=== PATIENT | female | born 1970 | race Caucasian/White ===

== ENCOUNTER 2023-07-05 15:51 | Emergency (ER) | payer OTHER, SELFPAY ==
[2023-07-05 15:57] VITALS: BP 149/103
[2023-07-05 16:23] LABS: % Basophils 0.6 % (0-2); % Eosinophils 1.8 % (0-6); % Immature Granulocytes 0.2 % (0-0.5); % Lymphocytes 32.4 % (20.5-51.1); Absolute Eosinophils 0.1 10^3/uL (0-0.7); Absolute Lymphocytes 1.7 10^3/uL (1.2-3.4); Absolute Monocytes 0.4 10^3/uL (0.1-0.6); Absolute Neutrophils 2.9 10^3/uL (1.4-6.5); Hematocrit 40.7 % (37.0-47.0); Hemoglobin 14.2 g/dL (12.0-16.0); Mean Corp Hgb Conc. 34.9 g/dL (33.0-37.0); Mean Corpuscular Hgb 32.3 pg (27.0-31.0); Mean Corpuscular Volume 92.5 fL (81.0-99.0); Mean Platelet Volume 10.6 fL (7.4-10.4); Nucleated Red Blood Cells % 0 %; Platelet Count 170 10^3/uL (130-400); Red Cell Dist. Width 11.9 % (11.5-14.5); White Blood Cell Count 5.1 10^3/uL (4.8-10.8)
[2023-07-05 16:33] LABS: ALT (SGPT) 20 U/L (0-35); AST (SGOT) 26 U/L (14-36); Albumin 4.1 g/dl (3.5-5.0); Alkaline Phosphatase 87 U/L (38-126); Blood Urea Nitrogen 19 mg/dl (7-17); Calcium 9.6 mg/dl (8.4-10.2); Carbon Dioxide 29 mmol/L (22-30); Chloride 98 mmol/L (98-107); Glucose 119 mg/dl (70-99); Potassium 4.5 mmol/L (3.5-5.1); Sodium 138 mmol/L (135-145); Total Bilirubin 0.7 mg/dl (0.2-1.3); Total Protein 6.8 g/dl (6.3-8.2); eGFR > 60.00
[2023-07-05 16:34] LABS: Lipase 177 U/L (23-300)
--- NOTE | 2023-07-05 18:11 | ED.GENMED ---
History of Present Illness
General
Chief Complaint: Abdominal Symptoms
Source: patient and family
Time Seen by Provider: 07/05/23 17:33
Travel History
Have you had any contact with someone who has COVID-19?: No
Do you have any symptoms of coronavirus? Fever > 100 degrees, chills, cough, shortness of breath, sore throat, loss of taste or smell, muscle aches, or headache?: No
History of Present Illness
History of Present Illness:
53-year-old female with past medical history of metastatic breast cancer status post double mastectomy, status post cholecystectomy and liver lobe resection presenting to the emergency department for evaluation after she started experiencing
increased abdominal bloating, belching, early satiety over the last 5 to 6 days, the last 3 days has experienced some diffuse intermittent back pain sent to the emergency department by her GI physician for further evaluation. Patient states that
she has been taking her Pepcid as directed but with minimal relief. She notes that she had an upper endoscopy a few months ago and was told that there were no abnormalities. She denies any bowel changes, urinary symptoms, no nausea or vomiting,
chest pain, shortness of breath, recent illnesses or any other concerns. Patient does note she did have some alcoholic beverages this past Wednesday but had already been experiencing symptoms prior to this. No other concerns at this time.
Past History
Past History
ED Past Medical History: Asthma, Cancer and Other (breast CA, no current chemo)
ED Past Surgical History: Cholecystectomy, , Orthopedic and Other (Double mastectomy, lower lobe resection)
Social History
Tobacco: Former smoker
Alcohol: Occasional
Drug: None
Personal:
Living: with family
Review of Systems
Review of Systems
All Other Systems: ROS reviewed and negative except as documented in HPI and ROS
Phy Exam
Physical Exam
Physical Exam:
GENERAL: Alert , in no apparent distress
EYE: clear conjunctiva b/l
HEAD: NCAT
ENT: o/p clr, mmm.
CARDIAC: Regular rate and rhythm .
LUNGS: Clear breath sounds bilaterally, no acute respiratory distress, no wheezes/rales/rhonchi
ABDOMEN: Soft, But distended, generalized discomfort without any focal tenderness, no r/g, no cvat, no tenderness at McBurney's point
NEUROLOGICAL: Alert and oriented
SKIN: Warm and dry, skin intact.
MUSCULOSKELETAL: well perfused.
PSYCH: Normal and appropriate interaction.
Scores
Heart Failure Risk
Heart Failure Risk Score: Not Applicable
Heart Score for Chest Pain Patients
STEMI patient?: Not applicable
Withdrawal Assessment of Alcohol
Withdrawal Assessment Completed?: Not applicable
Course
Orders/Labs/Results
Orders:
Orders
07/05/23 16:12
Complete Blood Count/With Diff Urgent
Comprehensive Metabolic Panel Urgent
Lipase Urgent
07/05/23 17:57
Famotidine [Pepcid] 20 mg IV NOW STA
Mag Hydrox/Al Hydrox/Simeth [Maalox] 30 ml Phenobarb/Hyoscy/Atropine/Scop [] 10 ml Viscous Lidocaine 2% [Xylocaine Viscous Cup] 10 ml PO NOW
07/05/23 17:58
CT Abd/pelvis W Iv Cont Urgent
Comment:
Reason For Exam: diffuse abd pain, previous liver mets, s/p arabella
07/05/23 18:13
Phenobarb/Hyoscy/Atropine/Scop [] 10 ml .ROUTE .STK-MED ONE
07/05/23 18:14
Mag Hydrox/Al Hydrox/Simeth [Maalox] 30 ml .ROUTE .STK-MED ONE
Viscous Lidocaine 2% [Xylocaine Viscous Cup] 15 ml .ROUTE .STK-MED ONE
07/05/23 18:29
Urinalysis Reflex To Culture Urgent
Date Specimen was Collected: 07/05/23
Time Specimen was Collected: 18:03
Urine Microscopic Reflex Cult Urgent
Abnormal Lab Results
07/05/23 07/05/23
16:12 18:29
MCH 32.3 H pg
(27.0-31.0)
MPV 10.6 H fL
(7.4-10.4)
BUN 19 H mg/dl
(7-17)
Glucose 119 H mg/dl
(70-99)
Leukocyte Esterase Rfl Trace A
(Negative)
07/05/23 16:12
07/05/23 16:12
Vital Signs
Initial and Last Documented VS:
Initial Vital Signs
Temp Pulse Resp BP Pulse Ox
98.2 F 86 16 149/103 98
07/05/23 15:57 07/05/23 15:57 07/05/23 15:57 07/05/23 15:57 07/05/23 15:57
Last Documented Vital Signs
Temp Pulse Resp BP Pulse Ox
98.2 F 81 16 149/103 98
07/05/23 15:57 07/05/23 19:40 07/05/23 15:57 07/05/23 15:57 07/05/23 19:40
MDM/Problems Addressed
Differential Diagnosis Includes:
GERD, gastritis, peptic ulcer disease, H. pylori, pancreatitis, appendicitis, less concern for atypical ACS presentation, given history of metastatic cancer minor concern for malignancy
MDM/Problems Addressed:
53-year-old female in the emergency department for evaluation of generalized abdominal discomfort, increased belching and over the last few days now back pain. Patient contacted her GI physician who directed her to the ER for further evaluation.
Lab work was initiated in triage and other than a low bicarb is unremarkable. Given patient's history I would like to obtain a CT of the abdomen pelvis for further evaluation. Will treat with Pepcid and green grabber. Reassessment following.
Chronic conditions affecting care: Cancer
*Radiology
Radiology exam reviewed: radiology read reviewed
*Pulse Oximetry
Patient hypoxic: no
*Critical Care Note
Total Time (30-74mins, 75-104mins- exclusive of procedures): Not Applicable
Data Reviewed
Review of Other/Old Records Reveals: Labs and Radiology Studies
Source: patient
Patient Management
Escalation/DeEscalation of care consider admission/obs:
Patient CT without any acute findings. She feels better with medications. She is afebrile, no leukocytosis and otherwise reassuring labs. Advise close follow-up with primary care physician as well as her GI. Aware of return precautions emergency
department but otherwise stable for discharge home.
ED Attending Note
-
Portions of this chart may have been created with voice recognition software.� Occasional wrong word or��sound alike� substitutions may have occurred due to the inherent limitations of voice recognition software.
Discharge Plan
Departure
Patient Disposition: Home (Routine Discharge)
Date of Disposition: 07/05/23
Time of Disposition: 19:30
Patient with high blood pressure during this ER visit?: No
Discharge Problem:
Abdominal pain
Instructions: Abdominal Pain
Prescriptions:
No Action
tamoxifen 20 MG tablet
20 mg PO DAILY
ondansetron [Zofran ODT] 8 MG tablet,disintegrating
8 mg PO TID PRN (Reason: nausea/vomiting) Qty: 15 0RF
oxycodone 5 MG tablet
5 mg PO Q6H PRN (Reason: pain) Qty: 30 0RF
Referrals:
Kayy Robbins PA-C [Family Provider] -
Interventions
Interventions:
*Risk Screen - Suicide Last Done: 07/05/23 19:40
*General Assessment Last Done: 07/05/23 19:40
*Neglect/Abuse Screening Last Done: 07/05/23 19:40
*ED COVID-19 Vaccine History Last Done: 07/05/23 15:57
*Nursing Disposition Last Done: 07/05/23 19:40
XG-Ffvioh-Owikznllaj Assessment Last Done: 07/05/23 18:58
Discharge Date and Time
Discharge Date/Time: 07/05/23 19:41
[2023-07-05] MEDS: MAALOX 50 PO (18:21)
[2023-07-05] MEDS: PEPCID 20 MG IV (18:22)
[2023-07-05 18:49] LABS: Urine Albumin Negative (Neg - Trace); Urine Bilirubin Negative (Negative); Urine Character Clear (Clear); Urine Color Yellow; Urine Glucose Negative (Negative); Urine Ketone Negative (Negative); Urine Leukocyte Trace (Negative); Urine Nitrite Negative (Negative); Urine Occult Blood Negative (Negative); Urine Urobilinogen Negative (Neg - 1+)
[2023-07-05 18:55] LABS: Urine Red Blood Cell None Seen /HPF (0-2); Urine Squamous Cell 0-2 /LPF (Few)
== END 2023-07-05 19:41 | disposition home or self-care (01) ==
LOC: EMR 15:51
PROVIDERS: Physician Assistant Medical; EMERGENCY PHYSICIAN Emergency Medicine; FAMILY PHYSICIAN Physician Assistant Medical
DX: R10.9 Unspecified abdominal pain (principal); R14.0 Abdominal distension (gaseous); R68.81 Early satiety; C78.7 Secondary malignant neoplasm of liver and intrahepatic bile duct; Z90.49 Acquired absence of other specified parts of digestive tract; Z85.3 Personal history of malignant neoplasm of breast; Z87.891 Personal history of nicotine dependence; Z90.13 Acquired absence of bilateral breasts and nipples
CPT/HCPCS: 99284; 96374; 74177; 80053; 81003; 81015; 83690; 85025; Q9967

== ENCOUNTER → 2024-02-02 10:44 | Outpatient (REF) | payer OTHER, SELFPAY ==
[2024-02-03 20:02] LABS: Rubella Positive
[2024-02-04 13:14] LABS: Quantiferon Plus TB1 minus NIL 0.04 IU/mL (<=0.34); Quantiferon Plus TB2 minus NIL 0.02 IU/mL (<=0.34); Quantiferon TB Gold Plus Negative (Negative)
== END ==
LOC: REG 10:44
PROVIDERS: ATTENDING PHYSICIAN Nurse Practitioner Family; FAMILY PHYSICIAN Physician Assistant Medical
DX: Z23 Encounter for immunization (principal)
CPT/HCPCS: 36415; 86480; 86735; 86762; 86765; 86787

== ENCOUNTER → 2024-04-24 15:26 | Outpatient (REF) | payer OTHER, SELFPAY | LOC: RCS 15:26 | PROVIDERS: ATTENDING PHYSICIAN Internal Medicine Hematology & Oncology; FAMILY PHYSICIAN Physician Assistant Medical | DX: C22.9 Malignant neoplasm of liver, not specified as primary or secondary (principal); C50.411 Malignant neoplasm of upper-outer quadrant of right female breast; R19.7 Diarrhea, unspecified; R59.0 Localized enlarged lymph nodes; D70.2 Other drug-induced agranulocytosis | CPT/HCPCS: 93306 ==

== ENCOUNTER → 2024-08-05 10:51 | Outpatient (REF) | payer OTHER, SELFPAY | LOC: RCS 10:51 | PROVIDERS: ATTENDING PHYSICIAN Internal Medicine Hematology & Oncology; FAMILY PHYSICIAN Physician Assistant Medical | DX: C22.9 Malignant neoplasm of liver, not specified as primary or secondary (principal); M54.12 Radiculopathy, cervical region (principal); C50.411 Malignant neoplasm of upper-outer quadrant of right female breast; R19.7 Diarrhea, unspecified; R59.0 Localized enlarged lymph nodes; D70.2 Other drug-induced agranulocytosis | CPT/HCPCS: 93306 ==

== ENCOUNTER → 2024-11-14 14:06 | Outpatient (REF) | payer OTHER, SELFPAY | LOC: RCS 14:06 | PROVIDERS: ATTENDING PHYSICIAN Internal Medicine Hematology & Oncology; FAMILY PHYSICIAN Physician Assistant Medical | DX: C22.9 Malignant neoplasm of liver, not specified as primary or secondary (principal); C50.411 Malignant neoplasm of upper-outer quadrant of right female breast; R19.7 Diarrhea, unspecified; R59.0 Localized enlarged lymph nodes; D70.2 Other drug-induced agranulocytosis | CPT/HCPCS: 93306 ==

== ENCOUNTER → 2025-03-02 13:24 | Outpatient (REF) | payer OTHER, SELFPAY | LOC: RCS 13:24 | PROVIDERS: ATTENDING PHYSICIAN Internal Medicine Hematology & Oncology; FAMILY PHYSICIAN Physician Assistant Medical | DX: C50.411 Malignant neoplasm of upper-outer quadrant of right female breast (principal) | CPT/HCPCS: 93306 ==